=== PATIENT | female | born 1985 | race Caucasian/White ===

== ENCOUNTER 2021-11-10 12:01 | Emergency (ER) | payer MEDICAID ==
[~2021-11-10] VITALS: Ht 167.6 cm; Wt 127.0 kg
--- NOTE | 2021-11-10 12:27 | NUR ---
TO ER BED 4, C/O "VENOUS STASIS ULCER",BOTH LEGS STARTED 2 WEEKS AGO, AAOX3, BREATHING EVEN AND NON LABORED
[2021-11-10] MEDS ORDERED: CEPHALEXIN MONOHYDRATE 500 MG CAPSULE PO ONE ×2 (12:53→13:00)
[2021-11-10] MEDS ORDERED: NAPROXEN 250 MG TABLET ONE (12:53)
[2021-11-10] MEDS ORDERED: SULFAMETH/TRIMETH 800/160 MG 1 UDTAB TABLET ONE (12:54)
[2021-11-10] MEDS ORDERED: SULFAMETH/TRIMETH 800/160 MG 1 UDTAB TABLET PO ONE (13:00)
[2021-11-10] MEDS ORDERED: NAPROXEN 250 MG TABLET PO ONE (13:00)
[2021-11-10] MEDS ORDERED: SULF1TAB48 PO (13:17)
[2021-11-10] MEDS ORDERED: CEPH500C2 PO (13:17)
--- NOTE | 2021-11-10 13:50 | NUR ---
Patient discharged to home in stable condition. Written and verbal after care instructions given. Patient verbalizes understanding of instruction.
[2021-11-10 13:51] VITALS: BP 142/70
[2021-11-11] MEDS ORDERED: NAPR-1192 PO (12:00)
== END 2021-11-10 13:51 | disposition home or self-care (01) ==
LOC: ER 12:30
DX: L03.116 Cellulitis of left lower limb (principal); L03.115 Cellulitis of right lower limb; I10 Essential (primary) hypertension; E11.9 Type 2 diabetes mellitus without complications; Z79.899 Other long term (current) drug therapy